=== PATIENT | male | born 1985 | race Two or more races ===

== ENCOUNTER 2020-02-14 16:13 | Inpatient (IN) | payer SELFPAY ==
[2020-02-14] MEDS ORDERED: Sodium Chloride 0.9% 10 ML Syringe FLUSH PRN (16:49)
[2020-02-14] MEDS ORDERED: Sodium Chloride 0.9% 10 ML SDV IV PRN (16:49)
[2020-02-14] MEDS ORDERED: Sodium Chloride 0.9% 2.5 ML Syringe FLUSH PRN (16:49)
--- NOTE | 2020-02-14 16:51 | EDM.PDOC ---
ED HPI GENERAL MEDICAL PROBLEM - General Chief Complaint: Respiratory Problem Stated Complaint: SHORTNESS OF BREATHE Time Seen by Provider: 02/14/20 16:13 Source of Information: Reports: Patient History Limitations: Reports: No Limitations - History of Present Illness INITIAL COMMENTS - FREE TEXT/NARRATIVE: Is a 34-year-old male with no past medical history presenting with cough, shortness of breath, chest discomfort, and lightheadedness. Patient reports a 5 -day history of a nonproductive cough with gradually worsening shortness of breath over the past 2 to 3 days. He had some substernal chest discomfort prior to arrival for several hours that subsided. He was walking to the emergency department and felt extremely short of breath, which is unusual for him. He reports that one of his coworkers that he had contact with was ill with a respiratory illness over the past few days. Denies any recent international travel, fever, hemoptysis, history of venous thromboembolism, history of coronary artery disease, leg swelling, recent travel or immobilization or surgery. Denies any pleuritic chest discomfort. He does report about 6 episodes of nonbloody diarrhea today but denies any nausea, vomiting, or bloody stools. No other complaints. Bilateral Lower Posterior Back Pain Score (Numeric/FACES): 8 - Related Data Allergies Allergy/AdvReac Type Severity Reaction Status Date / Time No Known Allergies Allergy Verified 02/14/20 20:59 Home Meds: Home Meds . [No Known Home Meds] 02/14/20 [History] Past Medical History - Past Health History Medical/Surgical History: Denies Medical/Surgical History HEENT History: Reports: None Cardiovascular History: Reports: None Respiratory History: Reports: None Gastrointestinal History: Reports: None Genitourinary History: Reports: None Musculoskeletal History: Reports: None Neurological History: Reports: None Psychiatric History: Reports: None Endocrine/Metabolic History: Reports: None Hematologic History: Reports: None Oncologic (Cancer) History: Reports: None Dermatologic History: Reports: None - Infectious Disease History Infectious Disease History: Reports: Chicken Pox - Past Surgical History Head Surgeries/Procedures: Reports: None Social & Family History - Family History Family Medical History: Noncontributory - Tobacco Use Smoking Status *Q: Never Smoker - Recreational Drug Use Recreational Drug Use: No ED ROS GENERAL - Review of Systems Review Of Systems: See Below Constitutional: Denies: Fever, Chills HEENT: Reports: No Symptoms Respiratory: Reports: Shortness of Breath, Cough. Denies: Wheezing, Pleuritic Chest Pain, Sputum, Hemoptysis Cardiovascular: Reports: Chest Pain (Prior to arrival, since resolved), Dyspnea on Exertion, Lightheadedness. Denies: Edema, Orthopnea, Palpitations, Syncope Endocrine: Denies: Fatigue GI/Abdominal: Reports: Diarrhea. Denies: Abdominal Pain, Black Stool, Bloody Stool, Constipation, Distension, Hematemesis, Hematochezia, Melena, Mucous in Stool, Nausea, Vomiting : Denies: Flank Pain Musculoskeletal: Denies: Neck Pain, Back Pain Skin: Denies: Rash Neurological: Denies: Headache Psychiatric: Reports: No Symptoms Hematologic/Lymphatic: Reports: No Symptoms Immunologic: Reports: No Symptoms ED EXAM, GENERAL - Physical Exam Exam: See Below Free Text/Narrative:: Vital signs reviewed. Nursing notes reviewed. Constitutional: Awake, alert, non-distressed. Head: Normocephalic, atraumatic. Eyes: EOMI, conjunctiva normal, no discharge, no scleral icterus. Ears, Nose, Throat: External ears and nose normal Cardiovascular: 2+ radial pulse, capillary refill less than 2 seconds. Pulmonary: normal work of breathing, no accessory muscle use. Handling secretions without difficulty Abdomen/GI: nondistended Musculoskeletal: No deformities. Integumentary: Appropriate color for ethnicity, warm, dry, no pallor or jaundice , no rash. Neurologic: Alert, answering questions appropriately, normal speech, no facial droop, moving all extremities well. Psychiatric: Appropriate mood and affect, normal thought process. EKG INTERPRETATION EKG Interpretation Comments: 12-Lead ECG Interpretation Acquired: 4:42 PM Rhythm: Sinus rhythm Rate: 87 bpm [place]: Normal Intervals: Normal Ectopy: None Ischemic Changes: None apparent RV Strain: No obvious RV strain pattern. ST Segments/T-Waves: T wave inversions in lead III, not seen in leads II or aVF Interpretation: Abnormal ECG Course - Vital Signs Text/Narrative:: 34-year-old male presenting with cough, shortness of breath, exertional dyspnea , chest discomfort, and diarrhea. Patient was hypoxic on arrival with an initial room air saturation of 88%, hemodynamically stable, afebrile, well-appearing, looks nontoxic. Differential diagnosis includes but is not limited to: pneumonia, novel coronavirus infection, viral pneumonia, congestive heart failure, pneumothorax, pulmonary embolism, pleural effusion, pericardial effusion, asthma, CHF, COPD, cor pulmonale, etc. Twelve-lead EKG shows T wave inversions in lead III, not seen in leads II or aVF so unlikely to be regional ischemia. CBC shows a mild macrocytic anemia. INR is normal. Venous blood gas is reassuring. Normal electrolytes and renal function. Troponin and BNP are within normal limits. COVID-19 nasopharyngeal PCR was negative. 1 view chest x-ray demonstrated diffuse increased densities seen in a perihilar distribution bilaterally, concerning for a viral pneumonia. Given resting hypoxia and symptoms with x-ray findings, I am concerned about viral pneumonia. There is concern for SARS-CoV-2/COVID-19 infection, and although his testing was negative, he has a high clinical pretest probability given his symptoms, x-ray findings, and vital signs. He will be maintained on airborne and contact precautions and will likely need to be retested in the morning. Influenza testing negative. A respiratory panel was sent as a send- out test. Given his hypoxia, he will need to be admitted to the hospital with supplemental oxygenation. I spoke with the accepting hospitalist Dr. Shook who agrees to admit to observation. Transferred to the observation unit in good condition. Last Recorded V/S: Last Vital Signs Temp 37.0 C 02/14/20 20:35 Pulse 94 02/14/20 20:35 Resp 20 02/14/20 20:35 BP 125/78 02/14/20 20:35 Pulse Ox 94 L 02/14/20 20:35 - Orders/Labs/Meds Orders: Active Orders 24 hr Category Date Time Status Cardiac Monitoring [RC] . DIRECTED Care 02/14/20 16:29 Active EKG 12 Lead [EKG Documentation Completion] [RC] STAT Care 02/14/20 16:29 Active Oxygen Therapy [RC] ASDIRECTED Care 02/14/20 16:58 Active Pulse Oximetry [RC] ASDIRECTED Care 02/14/20 16:29 Active CULTURE BLOOD [BC] Stat Lab 02/14/20 17:01 Received CULTURE BLOOD [BC] Stat Lab 02/14/20 17:28 Results RESPIRATORY PANEL Stat Lab 02/14/20 17:17 Received Sodium Chloride 0.9% [Normal Saline] Med 02/14/20 16:49 Active 10 ml IV ASDIRECTED PRN Sodium Chloride 0.9% [Saline Flush] Med 02/14/20 16:49 Active 10 ml FLUSH ASDIRECTED PRN Sodium Chloride 0.9% [Saline Flush] [facility] 02/14/20 16:49 Active 2.5 ml FLUSH ASDIRECTED PRN Blood Culture x2 Reflex Set [OM.PC] Stat [facility] 02/14/20 16:55 Ordered Isolation [COMM] Stat [facility] 02/14/20 16:29 Active Peripheral IV Insertion Adult [OM.PC] Stat [facility] 02/14/20 16:49 Ordered Medication Orders Albuterol/Ipratropium (Duoneb 3.0-0.5 Mg/3 Ml) 3 ml NEB Q4HRRT PRN PRN Reason: Shortness Of Breath/wheezing Heparin Sodium (Porcine) (Heparin Sodium) 5,000 units SUBCUT Q8H [facility] Last Admin: 02/14/20 22:07 Dose: 5,000 units Lactated Ringer's (Ringers, Lactated) 1,000 mls @ 100 mls/hr IV ASDIRECTED [facility] Last Admin: 02/14/20 22:08 Dose: 100 mls/hr Sodium Chloride (Saline Flush) 10 ml FLUSH ASDIRECTED PRN PRN Reason: Keep Vein Open Sodium Chloride (Saline Flush) 2.5 ml FLUSH ASDIRECTED PRN PRN Reason: Keep Vein Open Sodium Chloride (Normal Saline) 10 ml IV ASDIRECTED PRN PRN Reason: IV Use Labs: Laboratory Tests 02/14/20 02/14/20 02/14/20 Range/Units 17:01 17:01 17:01 WBC 6.97 (4.0-11.0) K/uL RBC 5.78 (4.50-5.90) M/uL Hgb 12.9 L (13.0-17.0) g/dL Hct 41.2 (38.0-50.0) % MCV 71.3 L (80.0-98.0) fL MCH 22.3 L (27.0-32.0) pg MCHC 31.3 (31.0-37.0) g/dL RDW Std Deviation 44.4 (28.0-62.0) fl RDW Coeff of Mildred 17 H (11.0-15.0) % Plt Count 379 (150-400) K/uL MPV 9.40 (7.40-12.00) fL Add Manual Diff YES Neutrophils % (Manual) 57 (48.0-80.0) % Band Neutrophils % 8 % Lymphocytes % (Manual) 25 (16.0-40.0) % Monocytes % (Manual) 10 (0.0-15.0) % Nucleated RBC % 0.0 /100WBC Absolute Seg Neuts 4.0 (1.4-5.7) Band Neutrophils # 0.6 Lymphocytes # (Manual) 1.7 (0.6-2.4) Monocytes # (Manual) 0.7 (0.0-0.8) Nucleated RBCs # 0 K/uL INR 1.02 VBG pH 7.39 (7.31-7.41) VBG pCO2 43 (35-45) mmHG VBG pO2 30 (30-40) mmHG VBG HCO3 26 (22-30) mEq/L VBG Total CO2 23 L (41-51) mmol/L VBG Base Excess 0.4 (-3.0-3.0) Lactate (0.20-2.00) mmol/L Sodium (136-148) mmol/L Potassium (3.5-5.1) mmol/L Chloride (98-107) mmol/L Carbon Dioxide (21.0-32.0) mmol/L BUN (7.0-18.0) mg/dL Creatinine (0.8-1.3) mg/dL Est Cr Clr Drug Dosing mL/min Estimated GFR (MDRD) ml/min Glucose (74-106) mg/dL Calcium (8.5-10.1) mg/dL Total Bilirubin (0.2-1.0) mg/dL AST (15-37) IU/L ALT (14-63) IU/L Alkaline Phosphatase (46-116) U/L Troponin I (0.000-0.056) ng/mL B-Natriuretic Peptide (<100) PG/ML Total Protein (6.4-8.2) g/dL Albumin (3.4-5.0) g/dL Globulin (2.6-4.0) g/dL Albumin/Globulin Ratio (0.9-1.6) SARS-CoV-2 RNA (RT-PCR) (NEGATIVE) 02/14/20 02/14/20 02/14/20 Range/Units 17:01 17:01 17:01 WBC (4.0-11.0) K/uL RBC (4.50-5.90) M/uL Hgb (13.0-17.0) g/dL Hct (38.0-50.0) % MCV (80.0-98.0) fL MCH (27.0-32.0) pg MCHC (31.0-37.0) g/dL RDW Std Deviation (28.0-62.0) fl RDW Coeff of Mildred (11.0-15.0) % Plt Count (150-400) K/uL MPV (7.40-12.00) fL Add Manual Diff Neutrophils % (Manual) (48.0-80.0) % Band Neutrophils % % Lymphocytes % (Manual) (16.0-40.0) % Monocytes % (Manual) (0.0-15.0) % Nucleated RBC % /100WBC Absolute Seg Neuts (1.4-5.7) Band Neutrophils # Lymphocytes # (Manual) (0.6-2.4) Monocytes # (Manual) (0.0-0.8) Nucleated RBCs # K/uL INR VBG pH (7.31-7.41) VBG pCO2 (35-45) mmHG VBG pO2 (30-40) mmHG VBG HCO3 (22-30) mEq/L VBG Total CO2 (41-51) mmol/L VBG Base Excess (-3.0-3.0) Lactate 1.5 (0.20-2.00) mmol/L Sodium 139 (136-148) mmol/L Potassium 3.5 (3.5-5.1) mmol/L Chloride 99 (98-107) mmol/L Carbon Dioxide 25.0 (21.0-32.0) mmol/L BUN 9 (7.0-18.0) mg/dL Creatinine 0.9 (0.8-1.3) mg/dL Est Cr Clr Drug Dosing 122.01 mL/min Estimated GFR (MDRD) > 60.0 ml/min Glucose 109 H (74-106) mg/dL Calcium 8.7 (8.5-10.1) mg/dL Total Bilirubin 0.4 (0.2-1.0) mg/dL AST 41 H (15-37) IU/L ALT 40 (14-63) IU/L Alkaline Phosphatase 66 (46-116) U/L Troponin I < 0.050 (0.000-0.056) ng/mL B-Natriuretic Peptide 4 (<100) PG/ML Total Protein 8.8 H (6.4-8.2) g/dL Albumin 3.3 L (3.4-5.0) g/dL Globulin 5.5 H (2.6-4.0) g/dL Albumin/Globulin Ratio 0.6 L (0.9-1.6) SARS-CoV-2 RNA (RT-PCR) (NEGATIVE) 02/14/20 Range/Units 17:01 WBC (4.0-11.0) K/uL RBC (4.50-5.90) M/uL Hgb (13.0-17.0) g/dL Hct (38.0-50.0) % MCV (80.0-98.0) fL MCH (27.0-32.0) pg MCHC (31.0-37.0) g/dL RDW Std Deviation (28.0-62.0) fl RDW Coeff of Mildred (11.0-15.0) % Plt Count (150-400) K/uL MPV (7.40-12.00) fL Add Manual Diff Neutrophils % (Manual) (48.0-80.0) % Band Neutrophils % % Lymphocytes % (Manual) (16.0-40.0) % Monocytes % (Manual) (0.0-15.0) % Nucleated RBC % /100WBC Absolute Seg Neuts (1.4-5.7) Band Neutrophils # Lymphocytes # (Manual) (0.6-2.4) Monocytes # (Manual) (0.0-0.8) Nucleated RBCs # K/uL INR VBG pH (7.31-7.41) VBG pCO2 (35-45) mmHG VBG pO2 (30-40) mmHG VBG HCO3 (22-30) mEq/L VBG Total CO2 (41-51) mmol/L VBG Base Excess (-3.0-3.0) Lactate (0.20-2.00) mmol/L Sodium (136-148) mmol/L Potassium (3.5-5.1) mmol/L Chloride (98-107) mmol/L Carbon Dioxide (21.0-32.0) mmol/L BUN (7.0-18.0) mg/dL Creatinine (0.8-1.3) mg/dL Est Cr Clr Drug Dosing mL/min Estimated GFR (MDRD) ml/min Glucose (74-106) mg/dL Calcium (8.5-10.1) mg/dL Total Bilirubin (0.2-1.0) mg/dL AST (15-37) IU/L ALT (14-63) IU/L Alkaline Phosphatase (46-116) U/L Troponin I (0.000-0.056) ng/mL B-Natriuretic Peptide (<100) PG/ML Total Protein (6.4-8.2) g/dL Albumin (3.4-5.0) g/dL Globulin (2.6-4.0) g/dL Albumin/Globulin Ratio (0.9-1.6) SARS-CoV-2 RNA (RT-PCR) NEGATIVE (NEGATIVE) Meds: Medications Generic Name Dose Route Start Last Admin Trade Name Freq PRN Reason Stop Dose Admin Albuterol/Ipratropium 3 ml 02/14/20 18:26 Duoneb 3.0-0.5 Mg/3 Ml NEB Q4HRRT PRN Shortness Of Breath/wheezing Heparin Sodium (Porcine) 5,000 units 02/14/20 21:00 02/14/20 22:07 Heparin Sodium SUBCUT 5,000 units Q8H [facility] Administration Lactated Ringer's 1,000 mls @ 100 mls/hr 02/14/20 18:45 02/14/20 22:08 Ringers, Lactated IV 100 mls/hr ASDIRECTED RUI Administration Sodium Chloride 10 ml 02/14/20 16:49 Saline Flush FLUSH ASDIRECTED PRN Keep Vein Open Sodium Chloride 2.5 ml 02/14/20 16:49 Saline Flush FLUSH ASDIRECTED PRN Keep Vein Open Sodium Chloride 10 ml 02/14/20 16:49 Normal Saline IV ASDIRECTED PRN IV Use Discontinued Medications Generic Name Dose Route Start Last Admin Trade Name Freq PRN Reason Stop Dose Admin Heparin Sodium (Porcine) 5,000 units 02/14/20 18:30 Heparin Sodium SUBCUT Q8H [facility] Departure - Departure Time of Disposition: 18:15 Disposition: Refer to Observation Clinical Impression: Viral pneumonia - Discharge Information Sepsis Event Note - Evaluation Sepsis Screening Result: No Definite Risk - Focused Exam Vital Signs: Vital Signs Temp Pulse Resp BP Pulse Ox Pulse Ox 02/14/20 17:45 81 20 126/76 94 L 02/14/20 17:10 95 02/14/20 17:09 88 22 H 125/76 90 L 02/14/20 16:27 35.9 C L 93 20 150/92 H 90 L Date Exam was Performed: 02/14/20 Time Exam was Performed: 22:10 - My Orders Last 24 Hours: My Active Orders 02/14/20 16:29 Cardiac Monitoring [RC] . DIRECTED EKG 12 Lead [EKG Documentation Completion] [RC] STAT Pulse Oximetry [RC] ASDIRECTED Isolation [COMM] Stat 02/14/20 16:49 Sodium Chloride 0.9% [Normal Saline] 10 ml IV ASDIRECTED PRN Sodium Chloride 0.9% [Saline Flush] 10 ml FLUSH ASDIRECTED PRN Sodium Chloride 0.9% [Saline Flush] 2.5 ml FLUSH ASDIRECTED PRN Peripheral IV Insertion Adult [OM.PC] Stat 02/14/20 16:55 Blood Culture x2 Reflex Set [OM.PC] Stat 02/14/20 16:58 Oxygen Therapy [RC] ASDIRECTED 02/14/20 17:01 CULTURE BLOOD [BC] Stat 02/14/20 17:17 RESPIRATORY PANEL Stat 02/14/20 17:28 CULTURE BLOOD [BC] Stat - Assessment/Plan Last 24 Hours: My Active Orders 02/14/20 16:29 Cardiac Monitoring [RC] . DIRECTED EKG 12 Lead [EKG Documentation Completion] [RC] STAT Pulse Oximetry [RC] ASDIRECTED Isolation [COMM] Stat 02/14/20 16:49 Sodium Chloride 0.9% [Normal Saline] 10 ml IV ASDIRECTED PRN Sodium Chloride 0.9% [Saline Flush] 10 ml FLUSH ASDIRECTED PRN Sodium Chloride 0.9% [Saline Flush] 2.5 ml FLUSH ASDIRECTED PRN Peripheral IV Insertion Adult [OM.PC] Stat 02/14/20 16:55 Blood Culture x2 Reflex Set [OM.PC] Stat 02/14/20 16:58 Oxygen Therapy [RC] ASDIRECTED 02/14/20 17:01 CULTURE BLOOD [BC] Stat 02/14/20 17:17 RESPIRATORY PANEL Stat 02/14/20 17:28 CULTURE BLOOD [BC] Stat
--- NOTE | 2020-02-14 17:16 | CR ---
Chest: Portable view of the chest was obtained. Comparison: No previous chest imaging is available. Diffuse increased density is seen in a perihilar distribution within both sides of the chest. Heart does not appear enlarged. Upper mediastinum is normal. Bony structures are unremarkable. Impression: 1. Diffuse increased density within a perihilar distribution. Findings could represent pulmonary edema if patient has had acute cardiac event. Differential also includes infection which could be bacterial or viral. Diagnostic code #3 This report was dictated in MDT
[2020-02-14 17:44] LABS: BLOOD UREA NITROGEN,BUN 9 mg/dL (7.0-18.0); CHLORIDE,CL 99 mmol/L (98-107); GLUCOSE RANDOM 109 mg/dL (74-106); POTASSIUM,K 3.5 mmol/L (3.5-5.1); SODIUM,NA 139 mmol/L (136-148)
[2020-02-14] MEDS ORDERED: Heparin Sodium 5,000 Units/ML Vial SUBCUT SCH (18:30)
--- NOTE | 2020-02-14 21:13 | PCM.HP.2 ---
H&P History of Present Illness - General Date of Service: 02/14/20 Admit Problem/Dx: Admission Diagnosis/Problem Admission Diagnosis/Problem Viral pneumonia Source of Information: Patient - History of Present Illness Initial Comments - Free Text/Narative: 34-year-old male with no significant PMH presents to the ER with cough, shortness of breath, exertional dyspnea, chest discomfort, and some diarrhea. Patient was hypoxic on arrival with an initial room air saturation of 88%, hemodynamically stable, looks nontoxic. EKG showed no acute ischemic changes. CBC shows a mild macrocytic anemia. Troponin and BNP are within normal limits. COVID-19 nasopharyngeal PCR was negative. Chest x-ray demonstrated diffuse increased density seen in a perihilar distribution bilaterally, concerning for a viral pneumonia vs Pulmonary edema. Given resting hypoxia and symptoms with x-ray findings,There was a concern for COVID-19 infection, testing was negative,ER physician was concerned about false negative results. Influenza testing was negative. Given patient continued to be hypoxic, he was admitted to the hospital. - Related Data Allergies/Adverse Reactions: Allergies Allergy/AdvReac Type Severity Reaction Status Date / Time No Known Allergies Allergy Verified 02/14/20 20:59 Home Medications: Home Meds . [No Known Home Meds] 02/14/20 [History] Past Medical History - Past Health History Medical/Surgical History: Denies Medical/Surgical History HEENT History: Reports: None Cardiovascular History: Reports: None Respiratory History: Reports: None Gastrointestinal History: Reports: None Genitourinary History: Reports: None Musculoskeletal History: Reports: None Neurological History: Reports: None Psychiatric History: Reports: None Endocrine/Metabolic History: Reports: None Hematologic History: Reports: None Oncologic (Cancer) History: Reports: None Dermatologic History: Reports: None - Infectious Disease History Infectious Disease History: Reports: Chicken Pox - Past Surgical History Head Surgeries/Procedures: Reports: None Social & Family History - Family History Family Medical History: Noncontributory Cardiac: Reports: None : Reports: Dialysis Endocrine/Metabolic: Reports: Diabetes, type II Oncologic: Reports: Renal - Tobacco Use Smoking Status *Q: Former Smoker Years of Tobacco use: 21 Packs/Tins Daily: 0.5 Used Tobacco, but Quit: Yes Month/Year Tobacco Last Used: 01/2020 Second Hand Smoke Exposure: No - Caffeine Use Caffeine Use: Reports: Coffee, Energy Drinks, Soda - Recreational Drug Use Recreational Drug Use: No H&P Review of Systems - Review of Systems: General: Reports: Chills, Malaise. Denies: Fever Pulmonary: Reports: Shortness of Breath, Cough, Sputum. Denies: Wheezing, Pleuritic Chest Pain Cardiovascular: Reports: Dyspnea on Exertion. Denies: Chest Pain, Palpitations , Orthopnea, Lightheadedness, Syncope Gastrointestinal: Reports: Diarrhea. Denies: Abdominal Pain, Anorexia, Bloody Stool, Constipation Genitourinary: Denies: Dysuria, Frequency, Burning, Pain Musculoskeletal: Denies: Neck Pain, Shoulder Pain, Arm Pain Neurological: Denies: Confusion, Dizziness, Headache Exam - Vital Signs Vital Signs: Last Vital Signs Temp 37.0 C 02/14/20 20:35 Pulse 94 02/14/20 20:35 Resp 20 02/14/20 20:35 BP 125/78 02/14/20 20:35 Pulse Ox 94 L 02/14/20 20:35 Weight: 134.037 kg - Exam Quality Assessment: Supplemental Oxygen General: Alert, Oriented HEENT: Conjunctiva Clear Neck: Supple, Trachea Midline Lungs: Decreased Breath Sounds, Crackles, Rales Cardiovascular: Regular Rate, Regular Rhythm, Normal S1, Normal S2 GI/Abdominal Exam: Normal Bowel Sounds, Soft, Non-Tender - Patient Data Lab Results Last 24 hrs: Laboratory Results - last 24 hr 02/14/20 02/14/20 02/14/20 Range/Units 17:01 17:01 17:01 WBC 6.97 (4.0-11.0) K/uL RBC 5.78 (4.50-5.90) M/uL Hgb 12.9 L (13.0-17.0) g/dL Hct 41.2 (38.0-50.0) % MCV 71.3 L (80.0-98.0) fL MCH 22.3 L (27.0-32.0) pg MCHC 31.3 (31.0-37.0) g/dL RDW Std Deviation 44.4 (28.0-62.0) fl RDW Coeff of Mildred 17 H (11.0-15.0) % Plt Count 379 (150-400) K/uL MPV 9.40 (7.40-12.00) fL Add Manual Diff YES Neutrophils % (Manual) 57 (48.0-80.0) % Band Neutrophils % 8 % Lymphocytes % (Manual) 25 (16.0-40.0) % Monocytes % (Manual) 10 (0.0-15.0) % Nucleated RBC % 0.0 /100WBC Absolute Seg Neuts 4.0 (1.4-5.7) Band Neutrophils # 0.6 Lymphocytes # (Manual) 1.7 (0.6-2.4) Monocytes # (Manual) 0.7 (0.0-0.8) Nucleated RBCs # 0 K/uL INR 1.02 VBG pH 7.39 (7.31-7.41) VBG pCO2 43 (35-45) mmHG VBG pO2 30 (30-40) mmHG VBG HCO3 26 (22-30) mEq/L VBG Total CO2 23 L (41-51) mmol/L VBG Base Excess 0.4 (-3.0-3.0) Lactate (0.20-2.00) mmol/L Sodium (136-148) mmol/L Potassium (3.5-5.1) mmol/L Chloride (98-107) mmol/L Carbon Dioxide (21.0-32.0) mmol/L BUN (7.0-18.0) mg/dL Creatinine (0.8-1.3) mg/dL Est Cr Clr Drug Dosing mL/min Estimated GFR (MDRD) ml/min Glucose (74-106) mg/dL Calcium (8.5-10.1) mg/dL Total Bilirubin (0.2-1.0) mg/dL AST (15-37) IU/L ALT (14-63) IU/L Alkaline Phosphatase (46-116) U/L Troponin I (0.000-0.056) ng/mL B-Natriuretic Peptide (<100) PG/ML Total Protein (6.4-8.2) g/dL Albumin (3.4-5.0) g/dL Globulin (2.6-4.0) g/dL Albumin/Globulin Ratio (0.9-1.6) SARS-CoV-2 RNA (RT-PCR) (NEGATIVE) 02/14/20 02/14/20 02/14/20 Range/Units 17:01 17:01 17:01 WBC (4.0-11.0) K/uL RBC (4.50-5.90) M/uL Hgb (13.0-17.0) g/dL Hct (38.0-50.0) % MCV (80.0-98.0) fL MCH (27.0-32.0) pg MCHC (31.0-37.0) g/dL RDW Std Deviation (28.0-62.0) fl RDW Coeff of Mildred (11.0-15.0) % Plt Count (150-400) K/uL MPV (7.40-12.00) fL Add Manual Diff Neutrophils % (Manual) (48.0-80.0) % Band Neutrophils % % Lymphocytes % (Manual) (16.0-40.0) % Monocytes % (Manual) (0.0-15.0) % Nucleated RBC % /100WBC Absolute Seg Neuts (1.4-5.7) Band Neutrophils # Lymphocytes # (Manual) (0.6-2.4) Monocytes # (Manual) (0.0-0.8) Nucleated RBCs # K/uL INR VBG pH (7.31-7.41) VBG pCO2 (35-45) mmHG VBG pO2 (30-40) mmHG VBG HCO3 (22-30) mEq/L VBG Total CO2 (41-51) mmol/L VBG Base Excess (-3.0-3.0) Lactate 1.5 (0.20-2.00) mmol/L Sodium 139 (136-148) mmol/L Potassium 3.5 (3.5-5.1) mmol/L Chloride 99 (98-107) mmol/L Carbon Dioxide 25.0 (21.0-32.0) mmol/L BUN 9 (7.0-18.0) mg/dL Creatinine 0.9 (0.8-1.3) mg/dL Est Cr Clr Drug Dosing 122.01 mL/min Estimated GFR (MDRD) > 60.0 ml/min Glucose 109 H (74-106) mg/dL Calcium 8.7 (8.5-10.1) mg/dL Total Bilirubin 0.4 (0.2-1.0) mg/dL AST 41 H (15-37) IU/L ALT 40 (14-63) IU/L Alkaline Phosphatase 66 (46-116) U/L Troponin I < 0.050 (0.000-0.056) ng/mL B-Natriuretic Peptide 4 (<100) PG/ML Total Protein 8.8 H (6.4-8.2) g/dL Albumin 3.3 L (3.4-5.0) g/dL Globulin 5.5 H (2.6-4.0) g/dL Albumin/Globulin Ratio 0.6 L (0.9-1.6) SARS-CoV-2 RNA (RT-PCR) (NEGATIVE) 02/14/20 Range/Units 17:01 WBC (4.0-11.0) K/uL RBC (4.50-5.90) M/uL Hgb (13.0-17.0) g/dL Hct (38.0-50.0) % MCV (80.0-98.0) fL MCH (27.0-32.0) pg MCHC (31.0-37.0) g/dL RDW Std Deviation (28.0-62.0) fl RDW Coeff of Mildred (11.0-15.0) % Plt Count (150-400) K/uL MPV (7.40-12.00) fL Add Manual Diff Neutrophils % (Manual) (48.0-80.0) % Band Neutrophils % % Lymphocytes % (Manual) (16.0-40.0) % Monocytes % (Manual) (0.0-15.0) % Nucleated RBC % /100WBC Absolute Seg Neuts (1.4-5.7) Band Neutrophils # Lymphocytes # (Manual) (0.6-2.4) Monocytes # (Manual) (0.0-0.8) Nucleated RBCs # K/uL INR VBG pH (7.31-7.41) VBG pCO2 (35-45) mmHG VBG pO2 (30-40) mmHG VBG HCO3 (22-30) mEq/L VBG Total CO2 (41-51) mmol/L VBG Base Excess (-3.0-3.0) Lactate (0.20-2.00) mmol/L Sodium (136-148) mmol/L Potassium (3.5-5.1) mmol/L Chloride (98-107) mmol/L Carbon Dioxide (21.0-32.0) mmol/L BUN (7.0-18.0) mg/dL Creatinine (0.8-1.3) mg/dL Est Cr Clr Drug Dosing mL/min Estimated GFR (MDRD) ml/min Glucose (74-106) mg/dL Calcium (8.5-10.1) mg/dL Total Bilirubin (0.2-1.0) mg/dL AST (15-37) IU/L ALT (14-63) IU/L Alkaline Phosphatase (46-116) U/L Troponin I (0.000-0.056) ng/mL B-Natriuretic Peptide (<100) PG/ML Total Protein (6.4-8.2) g/dL Albumin (3.4-5.0) g/dL Globulin (2.6-4.0) g/dL Albumin/Globulin Ratio (0.9-1.6) SARS-CoV-2 RNA (RT-PCR) NEGATIVE (NEGATIVE) Result Diagrams: 02/14/20 17:01 02/14/20 17:01 Francesco Results Last 24 hrs: Microbiology 02/14/20 17:17 Influenza Type A Antigen Screen - Final Nasopharyngeal Swab NEGATIVE INFLUENZA A VIRUS AG REFERENCE RANGE: NEGATIVE Influenza Type B Antigen Screen - Final NEGATIVE INFLUENZA B VIRUS AG REFERENCE RANGE: NEGATIVE 02/14/20 17:28 Anaerobic Blood Culture - Final Blood - Venous - Lab Draw Sepsis Event Note - Evaluation Sepsis Screening Result: No Definite Risk - Focused Exam Vital Signs: Vital Signs Temp Pulse Resp BP Pulse Ox Pulse Ox 02/14/20 20:35 37.0 C 94 20 125/78 94 L 02/14/20 19:00 91 124/81 91 L 02/14/20 18:22 82 22 H 148/86 H 95 02/14/20 18:05 137/91 H 02/14/20 17:45 81 20 126/76 94 L 02/14/20 17:10 95 02/14/20 17:09 88 22 H 125/76 90 L 02/14/20 16:27 35.9 C L 93 20 150/92 H 90 L Date Exam was Performed: 02/14/20 Time Exam was Performed: 21:47 - Problem List (1) Viral pneumonia SNOMED Code(s): 08404940 ICD Code: J12.9 - VIRAL PNEUMONIA, UNSPECIFIED Status: Acute Current Visit: Yes Orders Last 24hrs: Active Orders 24 hr Category Date Time Status Patient Status [ADT] Stat ADT 02/14/20 18:02 Active Antiembolic Devices [RC] PER UNIT ROUTINE Care 02/14/20 18:32 Active Cardiac Monitoring [RC] . DIRECTED Care 02/14/20 16:29 Active EKG 12 Lead [EKG Documentation Completion] [RC] STAT Care 02/14/20 16:29 Active Oxygen Therapy [RC] ASDIRECTED Care 02/14/20 16:58 Active Oxygen Therapy [RC] PRN Care 02/14/20 18:27 Active Pulse Oximetry [RC] ASDIRECTED Care 02/14/20 16:29 Active RT Aerosol Therapy [RC] ASDIRECTED Care 02/14/20 18:32 Active Telemetry Monitoring [Cardiac Monitoring] [RC] Q8H Care 02/14/20 20:15 Active VTE/DVT Education [RC] PER UNIT ROUTINE Care 02/14/20 18:27 Active Vital Signs [RC] Q4H Care 02/14/20 18:27 Active Regular Diet [DIET] Diet 02/14/20 Dinner Active CULTURE BLOOD [BC] Stat Lab 02/14/20 17:01 Received CULTURE BLOOD [BC] Stat Lab 02/14/20 17:28 Results CULTURE SPUTUM + SMEAR [RM] Stat Lab 02/14/20 18:26 Ordered RESPIRATORY PANEL Stat Lab 02/14/20 17:17 Received Albuterol/Ipratropium [DuoNeb 3.0-0.5 MG/3 ML] Med 02/14/20 18:26 Active 3 ml NEB Q4HRRT PRN Heparin Sodium Med 02/14/20 21:00 Active 5,000 units SUBCUT Q8H Lactated Ringers [Ringers, Lactated] 1,000 ml Med 02/14/20 18:45 Active IV ASDIRECTED Sodium Chloride 0.9% [Normal Saline] Med 02/14/20 16:49 Active 10 ml IV ASDIRECTED PRN Sodium Chloride 0.9% [Saline Flush] Med 02/14/20 16:49 Active 10 ml FLUSH ASDIRECTED PRN Sodium Chloride 0.9% [Saline Flush] Med 02/14/20 16:49 Active 2.5 ml FLUSH ASDIRECTED PRN Blood Culture x2 Reflex Set [OM.PC] Stat Oth 02/14/20 16:55 Ordered Isolation [COMM] Routine Ot 02/14/20 18:05 Active Isolation [COMM] Stat Ot 02/14/20 16:29 Active Peripheral IV Insertion Adult [OM.PC] Stat Ot 02/14/20 16:49 Ordered Sequential Compression Device [OM.PC] Per Unit Routine Ot 02/14/20 18:28 Ordered Resuscitation Status Routine Resus Stat 02/14/20 18:26 Ordered Medication Orders Albuterol/Ipratropium (Duoneb 3.0-0.5 Mg/3 Ml) 3 ml NEB Q4HRRT PRN PRN Reason: Shortness Of Breath/wheezing Heparin Sodium (Porcine) (Heparin Sodium) 5,000 units SUBCUT Q8H RUI Lactated Ringer's (Ringers, Lactated) 1,000 mls @ 100 mls/hr IV ASDIRECTED RUI Sodium Chloride (Saline Flush) 10 ml FLUSH ASDIRECTED PRN PRN Reason: Keep Vein Open Sodium Chloride (Saline Flush) 2.5 ml FLUSH ASDIRECTED PRN PRN Reason: Keep Vein Open Sodium Chloride (Normal Saline) 10 ml IV ASDIRECTED PRN PRN Reason: IV Use Assessment/Plan Comment:: A/P: 34 y/o M admitted for viral pneumonia vs pulmonary edema Physical exam not suggestive of volume overload Influenza swab negative, COVID negtaive F/U blood cultures Start oxygenation with NC to maintain sats>92% IVF for hydration , watch for volume overload Monitor and replete electrolytes Heparin for DVT ppx
[2020-02-14] MEDS: Heparin Sodium 5,000 Units/ML Vial SUBCUT SCH (22:07)
[2020-02-14] MEDS: Lactated Ringers 1,000 ML IV SCH (22:08)
[2020-02-14] MEDS ORDERED: cefTRIAXone 1 GM in Sodium Chloride 0.9% 50 ML IV SCH (23:00)
[2020-02-14] MEDS ORDERED: Furosemide 20 MG/2 ML VIAL IVPUSH ONE (23:42)
[2020-02-14] MEDS: Albuterol/Ipratropium 3.0-0.5 MG/3 ML Neb Soln NEB PRN (23:48)
[2020-02-14] MEDS: Azithromycin 500 MG in Sodium Chloride 0.9% 250 ML IV SCH (23:59)
[2020-02-15] MEDS ORDERED: Azithromycin 500 MG in Sodium Chloride 0.9% 250 ML IV SCH ×2
[2020-02-15] MEDS: Morphine 2 MG/ML Syringe IVPUSH PRN ×4 (00:21→23:09)
[2020-02-15] MEDS: Heparin Sodium 5,000 Units/ML Vial SUBCUT SCH (05:13)
[2020-02-15] MEDS: Albuterol/Ipratropium 3.0-0.5 MG/3 ML Neb Soln NEB PRN (07:40)
--- NOTE | 2020-02-15 09:21 | PCM.PN ---
- General Info Date of Service: 02/15/20 Admission Dx/Problem (Free Text): Admission Diagnosis/Problem Admission Diagnosis/Problem Viral pneumonia Subjective Update: Feeling a little improved today. Continues to have dyspnea with hypoxia. Reports cough especially with exertion and dyspnea. denies history of asthma. Reports he quit smoking a few months ago. Reports he recently traveled in car from [place] 2 weeks ago. Denies leg pain or swelling. - Review of Systems General: Reports: Fatigue, Malaise HEENT: Reports: Sore Throat. Denies: Headaches, Sinus Congestion, Visual Changes Pulmonary: Reports: Shortness of Breath, Cough. Denies: Sputum Cardiovascular: Reports: No Symptoms. Denies: Chest Pain Gastrointestinal: Reports: No Symptoms. Denies: Abdominal Pain, Nausea, Vomiting Genitourinary: Reports: Hematuria. Denies: Dysuria, Frequency Musculoskeletal: Reports: No Symptoms Skin: Reports: No Symptoms Neurological: Reports: No Symptoms Psychiatric: Reports: No Symptoms - Patient Data Vitals - Most Recent: Last Vital Signs Temp 97.8 F 02/15/20 07:44 Pulse 76 02/15/20 07:44 Resp 20 02/15/20 07:44 BP 118/72 02/15/20 07:44 Pulse Ox 91 L 02/15/20 07:44 Weight - Most Recent: 134.037 kg I&O - Last 24 Hours: Intake & Output 02/14/20 02/15/20 02/15/20 22:59 06:59 14:59 Intake Total 1123 Output Total 950 Balance 173 Lab Results Last 24 Hours: Laboratory Results - last 24 hr 02/14/20 02/14/20 02/14/20 Range/Units 17:01 17:01 17:01 WBC 6.97 (4.0-11.0) K/uL RBC 5.78 (4.50-5.90) M/uL Hgb 12.9 L (13.0-17.0) g/dL Hct 41.2 (38.0-50.0) % MCV 71.3 L (80.0-98.0) fL MCH 22.3 L (27.0-32.0) pg MCHC 31.3 (31.0-37.0) g/dL RDW Std Deviation 44.4 (28.0-62.0) fl RDW Coeff of Mildred 17 H (11.0-15.0) % Plt Count 379 (150-400) K/uL MPV 9.40 (7.40-12.00) fL Add Manual Diff YES Neutrophils % (Manual) 57 (48.0-80.0) % Band Neutrophils % 8 % Lymphocytes % (Manual) 25 (16.0-40.0) % Monocytes % (Manual) 10 (0.0-15.0) % Nucleated RBC % 0.0 /100WBC Absolute Seg Neuts 4.0 (1.4-5.7) Band Neutrophils # 0.6 Lymphocytes # (Manual) 1.7 (0.6-2.4) Monocytes # (Manual) 0.7 (0.0-0.8) Nucleated RBCs # 0 K/uL INR 1.02 VBG pH 7.39 (7.31-7.41) VBG pCO2 43 (35-45) mmHG VBG pO2 30 (30-40) mmHG VBG HCO3 26 (22-30) mEq/L VBG Total CO2 23 L (41-51) mmol/L VBG Base Excess 0.4 (-3.0-3.0) Lactate (0.20-2.00) mmol/L Sodium (136-148) mmol/L Potassium (3.5-5.1) mmol/L Chloride (98-107) mmol/L Carbon Dioxide (21.0-32.0) mmol/L BUN (7.0-18.0) mg/dL Creatinine (0.8-1.3) mg/dL Est Cr Clr Drug Dosing mL/min Estimated GFR (MDRD) ml/min Glucose (74-106) mg/dL Calcium (8.5-10.1) mg/dL Total Bilirubin (0.2-1.0) mg/dL AST (15-37) IU/L ALT (14-63) IU/L Alkaline Phosphatase (46-116) U/L Troponin I (0.000-0.056) ng/mL B-Natriuretic Peptide (<100) PG/ML Total Protein (6.4-8.2) g/dL Albumin (3.4-5.0) g/dL Globulin (2.6-4.0) g/dL Albumin/Globulin Ratio (0.9-1.6) Urine Color Urine Appearance Urine pH (5.0-8.0) Ur Specific [place] (1.001-1.035) Urine Protein (NEGATIVE) mg/dL Urine Glucose (UA) (NEGATIVE) mg/dL Urine Ketones (NEGATIVE) mg/dL Urine Occult Blood (NEGATIVE) Urine Nitrite (NEGATIVE) Urine Bilirubin (NEGATIVE) Urine Ictotest Urine Urobilinogen (<2.0) EU/dL Ur Leukocyte Esterase (NEGATIVE) Urine RBC (0-2/HPF) Urine WBC (0-5/HPF) Ur Epithelial Cells (NONE-FEW) Urine Bacteria (NEGATIVE) Urine Mucus (NONE-MOD) SARS-CoV-2 RNA (RT-PCR) (NEGATIVE) 02/14/20 02/14/20 02/14/20 Range/Units 17:01 17:01 17:01 WBC (4.0-11.0) K/uL RBC (4.50-5.90) M/uL Hgb (13.0-17.0) g/dL Hct (38.0-50.0) % MCV (80.0-98.0) fL MCH (27.0-32.0) pg MCHC (31.0-37.0) g/dL RDW Std Deviation (28.0-62.0) fl RDW Coeff of Mildred (11.0-15.0) % Plt Count (150-400) K/uL MPV (7.40-12.00) fL Add Manual Diff Neutrophils % (Manual) (48.0-80.0) % Band Neutrophils % % Lymphocytes % (Manual) (16.0-40.0) % Monocytes % (Manual) (0.0-15.0) % Nucleated RBC % /100WBC Absolute Seg Neuts (1.4-5.7) Band Neutrophils # Lymphocytes # (Manual) (0.6-2.4) Monocytes # (Manual) (0.0-0.8) Nucleated RBCs # K/uL INR VBG pH (7.31-7.41) VBG pCO2 (35-45) mmHG VBG pO2 (30-40) mmHG VBG HCO3 (22-30) mEq/L VBG Total CO2 (41-51) mmol/L VBG Base Excess (-3.0-3.0) Lactate 1.5 (0.20-2.00) mmol/L Sodium 139 (136-148) mmol/L Potassium 3.5 (3.5-5.1) mmol/L Chloride 99 (98-107) mmol/L Carbon Dioxide 25.0 (21.0-32.0) mmol/L BUN 9 (7.0-18.0) mg/dL Creatinine 0.9 (0.8-1.3) mg/dL Est Cr Clr Drug Dosing 122.01 mL/min Estimated GFR (MDRD) > 60.0 ml/min Glucose 109 H (74-106) mg/dL Calcium 8.7 (8.5-10.1) mg/dL Total Bilirubin 0.4 (0.2-1.0) mg/dL AST 41 H (15-37) IU/L ALT 40 (14-63) IU/L Alkaline Phosphatase 66 (46-116) U/L Troponin I < 0.050 (0.000-0.056) ng/mL B-Natriuretic Peptide 4 (<100) PG/ML Total Protein 8.8 H (6.4-8.2) g/dL Albumin 3.3 L (3.4-5.0) g/dL Globulin 5.5 H (2.6-4.0) g/dL Albumin/Globulin Ratio 0.6 L (0.9-1.6) Urine Color Urine Appearance Urine pH (5.0-8.0) Ur Specific [place] (1.001-1.035) Urine Protein (NEGATIVE) mg/dL Urine Glucose (UA) (NEGATIVE) mg/dL Urine Ketones (NEGATIVE) mg/dL Urine Occult Blood (NEGATIVE) Urine Nitrite (NEGATIVE) Urine Bilirubin (NEGATIVE) Urine Ictotest Urine Urobilinogen (<2.0) EU/dL Ur Leukocyte Esterase (NEGATIVE) Urine RBC (0-2/HPF) Urine WBC (0-5/HPF) Ur Epithelial Cells (NONE-FEW) Urine Bacteria (NEGATIVE) Urine Mucus (NONE-MOD) SARS-CoV-2 RNA (RT-PCR) (NEGATIVE) 02/14/20 02/15/20 Range/Units 17:01 00:09 WBC (4.0-11.0) K/uL RBC (4.50-5.90) M/uL Hgb (13.0-17.0) g/dL Hct (38.0-50.0) % MCV (80.0-98.0) fL MCH (27.0-32.0) pg MCHC (31.0-37.0) g/dL RDW Std Deviation (28.0-62.0) fl RDW Coeff of Mildred (11.0-15.0) % Plt Count (150-400) K/uL MPV (7.40-12.00) fL Add Manual Diff Neutrophils % (Manual) (48.0-80.0) % Band Neutrophils % % Lymphocytes % (Manual) (16.0-40.0) % Monocytes % (Manual) (0.0-15.0) % Nucleated RBC % /100WBC Absolute Seg Neuts (1.4-5.7) Band Neutrophils # Lymphocytes # (Manual) (0.6-2.4) Monocytes # (Manual) (0.0-0.8) Nucleated RBCs # K/uL INR VBG pH (7.31-7.41) VBG pCO2 (35-45) mmHG VBG pO2 (30-40) mmHG VBG HCO3 (22-30) mEq/L VBG Total CO2 (41-51) mmol/L VBG Base Excess (-3.0-3.0) Lactate (0.20-2.00) mmol/L Sodium (136-148) mmol/L Potassium (3.5-5.1) mmol/L Chloride (98-107) mmol/L Carbon Dioxide (21.0-32.0) mmol/L BUN (7.0-18.0) mg/dL Creatinine (0.8-1.3) mg/dL Est Cr Clr Drug Dosing mL/min Estimated GFR (MDRD) ml/min Glucose (74-106) mg/dL Calcium (8.5-10.1) mg/dL Total Bilirubin (0.2-1.0) mg/dL AST (15-37) IU/L ALT (14-63) IU/L Alkaline Phosphatase (46-116) U/L Troponin I (0.000-0.056) ng/mL B-Natriuretic Peptide (<100) PG/ML Total Protein (6.4-8.2) g/dL Albumin (3.4-5.0) g/dL Globulin (2.6-4.0) g/dL Albumin/Globulin Ratio (0.9-1.6) Urine Color DARK YELLOW Urine Appearance CLEAR Urine pH 6.5 (5.0-8.0) Ur Specific [place] 1.020 (1.001-1.035) Urine Protein 100 H (NEGATIVE) mg/dL Urine Glucose (UA) NEGATIVE (NEGATIVE) mg/dL Urine Ketones TRACE H (NEGATIVE) mg/dL Urine Occult Blood TRACE-INTACT H (NEGATIVE) Urine Nitrite NEGATIVE (NEGATIVE) Urine Bilirubin SMALL H (NEGATIVE) Urine Ictotest NEGATIVE Urine Urobilinogen 2.0 H (<2.0) EU/dL Ur Leukocyte Esterase NEGATIVE (NEGATIVE) Urine RBC 1-4 (0-2/HPF) Urine WBC 0-1 (0-5/HPF) Ur Epithelial Cells OCCASIONAL (NONE-FEW) Urine Bacteria RARE (NEGATIVE) Urine Mucus MODERATE (NONE-MOD) SARS-CoV-2 RNA (RT-PCR) NEGATIVE (NEGATIVE) Francesco Results Last 24 Hours: Microbiology 02/14/20 17:17 Influenza Type A Antigen Screen - Final Nasopharyngeal Swab NEGATIVE INFLUENZA A VIRUS AG REFERENCE RANGE: NEGATIVE Influenza Type B Antigen Screen - Final NEGATIVE INFLUENZA B VIRUS AG REFERENCE RANGE: NEGATIVE 02/14/20 17:28 Anaerobic Blood Culture - Final Blood - Venous - Lab Draw Med Orders - Current: Current Medications Albuterol/Ipratropium (Duoneb 3.0-0.5 Mg/3 Ml) 3 ml NEB Q4HRRT PRN PRN Reason: Shortness Of Breath/wheezing Last Admin: 02/15/20 07:40 Dose: 3 ml Enoxaparin Sodium (Lovenox) 40 mg SUBCUT Q24H [facility] Lactated Ringer's (Ringers, Lactated) 1,000 mls @ 100 mls/hr IV ASDIRECTED RUI Last Admin: 02/14/20 22:08 Dose: 100 mls/hr Azithromycin 500 mg/ Sodium (Chloride) 250 mls @ 250 mls/hr IV Q24H RUI Last Admin: 02/14/20 23:59 Dose: 250 mls/hr Ceftriaxone Sodium/Dextrose 1 (gm/ Premix) 50 mls @ 100 mls/hr IV Q24H [facility] Morphine Sulfate (Morphine) 2 mg IVPUSH Q4H PRN PRN Reason: Pain Last Admin: 02/15/20 07:41 Dose: 2 mg Sodium Chloride (Saline Flush) 10 ml FLUSH ASDIRECTED PRN PRN Reason: Keep Vein Open Sodium Chloride (Saline Flush) 2.5 ml FLUSH ASDIRECTED PRN PRN Reason: Keep Vein Open Sodium Chloride (Normal Saline) 10 ml IV ASDIRECTED PRN PRN Reason: IV Use Discontinued Medications Furosemide (Lasix) 20 mg IVPUSH NOW ONE Stop: 02/14/20 23:43 Last Admin: 02/14/20 23:55 Dose: 20 mg Heparin Sodium (Porcine) (Heparin Sodium) 5,000 units SUBCUT Q8H [facility] Last Admin: 02/14/20 22:21 Dose: Not Given Heparin Sodium (Porcine) (Heparin Sodium) 5,000 units SUBCUT Q8H [facility] Last Admin: 02/15/20 05:13 Dose: 5,000 units Azithromycin 500 mg/ Sodium (Chloride) 250 mls @ 250 mls/hr IV Q24H [facility] Ceftriaxone Sodium 1 gm/ (Sodium Chloride) 50 mls @ 100 mls/hr IV Q24H [facility] Last Admin: 02/15/20 00:14 Dose: 100 mls/hr - Exam General: Alert, Oriented, Cooperative, No Acute Distress Lungs: Wheezing (scant wheezing to R middle lobe) Cardiovascular: Regular Rate, Regular Rhythm, No Murmurs GI/Abdominal Exam: Normal Bowel Sounds, Soft, Non-Tender, Other (obese abdomen) Back Exam: Normal Inspection Extremities: Normal Inspection, Normal Range of Motion, Non-Tender Neurological: No New Focal Deficit Psy/Mental Status: Alert, Normal Affect, Normal Mood Sepsis Event Note - Evaluation Sepsis Screening Result: No Definite Risk - Focused Exam Vital Signs: Vital Signs Temp Pulse Resp BP Pulse Ox 02/15/20 07:44 97.8 F 76 20 118/72 91 L 02/15/20 04:48 97.9 F 76 20 116/56 L 92 L 02/15/20 00:17 97.8 F 81 20 118/65 92 L Date Exam was Performed: 02/15/20 Time Exam was Performed: 12:44 - Problem List & Annotations (1) Hypoxia SNOMED Code(s): 073380485 Code(s): R09.02 - HYPOXEMIA Status: Acute Current Visit: Yes (2) Dyspnea SNOMED Code(s): 553709856 Code(s): R06.00 - DYSPNEA, UNSPECIFIED Status: Acute Current Visit: Yes - Problem List Review Problem List Initiated/Reviewed/Updated: Yes - My Orders Last 24 Hours: My Active Orders 02/15/20 08:21 CBC WITH AUTO DIFF [HEME] Routine COMPREHENSIVE METABOLIC PN,CMP [CHEM] Routine 02/15/20 09:13 Ang Chest [CT] Urgent - Plan Plan:: This 34 year old male admitted with hypoxia, dyspnea suspected viral pneumonia or pulmonary edema 1. Hypoxia, dyspnea Viral pneumonia - Continues to need 5 L NC with sats 92% - Influenza swab negative, COVID negative. May consider retesting COVID tomorrow to evaluate for false negative. - CXR shows possible viral pneumonia vs pulmonary edema. Patient reports recent long travel in car. No leg pain. - CT angio of chest reveals diffuse parenchymal densities through both sides of the chest. PE ruled out. - Will retest COVID today due to CT findings - Blood cultures pending - Continue oxygenation with NC to maintain sats>92% - Tolerating diet well and drinking well. Will stop IVFs. - Monitor and replete electrolytes - MDI PRN for wheezing and dyspnea, DC duonebs due to concern of COVID, limit aerosolizing procedures. - Droplet precaution - Respiratory panel pending from ED. 2. Hematuria - Noted in UA and patient reports small amount in urine - Flank pain on admission, CT abdomen/pelvis obtained today reveals no renal stones. and otherwise normal - Monitor. VTE prophylaxis: Lovenox Dispo: Change to inpatient status as patient will need greater than 2 midnights
[2020-02-15 10:54] LABS: BLOOD UREA NITROGEN,BUN 11 mg/dL (7.0-18.0); CHLORIDE,CL 102 mmol/L (98-107); GLUCOSE RANDOM 99 mg/dL (74-106); POTASSIUM,K 3.9 mmol/L (3.5-5.1); SODIUM,NA 142 mmol/L (136-148)
[2020-02-15] MEDS: Lactated Ringers 1,000 ML IV SCH (10:56)
--- NOTE | 2020-02-15 12:10 | CT ---
CT chest Technique: Multiple axial sections were obtained through the chest. Intravenous contrast was utilized. Study performed as a pulmonary angiogram protocol. Findings: Pulmonary arteries are moderately well opacified. No filling defects within the main or segmental branches are seen. Smaller subsegmental pulmonary emboli could be missed. Mediastinum shows several slightly prominent lymph nodes believed to be on an inflammatory basis. Mild gynecomastia is noted. Aorta shows no aneurysm. Lungs show diffuse patchy areas of increased density throughout both sides of the chest. Bone window settings were reviewed which shows no acute osseous finding. Impression: 1. Diffuse parenchymal densities throughout both sides of the chest raising the possibility of diffuse pneumonia. 2. No definite findings of pulmonary embolism are seen. Smaller subsegmental pulmonary emboli could be missed. 3. Mild gynecomastia. Diagnostic code #5 This report was dictated in MDT
--- NOTE | 2020-02-15 12:10 | CT ---
CT abdomen and pelvis Technique: Multiple axial sections were obtained from above the dome of the diaphragm inferiorly through the pubic symphysis. Intravenous and oral contrast not utilized. Study performed as a ureteral stone protocol. Findings: Kidneys show no abnormal calcifications. No ureteral dilatation or ureteral stone is seen. No bladder calculi are seen. Patchy areas of increased density are noted within both lung bases. Please correlate if patient has infectious symptoms for this to represent areas of pneumonia. Liver shows fatty infiltration. Spleen size is normal. Adrenal glands show no nodule. Pancreas shows no discrete abnormality. Gallbladder contains no calcified gallstones. Aorta shows no aneurysm. No retroperitoneal adenopathy or mesenteric abnormalities are appreciated. No pelvic mass or adenopathy is seen. No free fluid or inflammatory change is appreciated. Appendix felt to be visualized and shows a calcification presumably due to appendicolith. No inflammatory change around the appendix is seen. Bone window settings were reviewed which appear within normal limits for the patient's age. Impression: 1. No ureteral stone dilatation or ureteral stone is seen. No renal calculi are seen. 2. Fatty infiltration within the liver. 3. Patchy increased density within both lung bases raising the possibility of diffuse pneumonia. Diagnostic code #3 This report was dictated in MDT
[2020-02-15] MEDS ORDERED: Albuterol/Ipratropium 4 GM Inhalation Spray INH PRN (12:47)
[2020-02-15] MEDS: Enoxaparin 40 MG/0.4 ML Syringe SUBCUT SCH (15:57)
[2020-02-15] MEDS ORDERED: guaiFENesin/Dextromethorphan 100-10 MG/5 ML Soln 10 ML Cup PO PRN (20:46)
[2020-02-15] MEDS: cefTRIAXone 1 GM in Premix Bag 1 BAG IV SCH (23:00)
[2020-02-15] MEDS: Azithromycin 500 MG in Sodium Chloride 0.9% 250 ML IV SCH (23:51)
[2020-02-16] MEDS: Morphine 2 MG/ML Syringe IVPUSH PRN (04:54)
--- NOTE | 2020-02-16 07:56 | PCM.PN ---
- General Info Date of Service: 02/16/20 Admission Dx/Problem (Free Text): Admission Diagnosis/Problem Admission Diagnosis/Problem Viral pneumonia Subjective Update: Feeling tired today. No chest pain. Having some pleuritic pain with coughing. Counseled on the need to deep breath and cough and use IS more. Reports having some intermittent streak of blood in urine. no flank pain. Functional Status: Reports: Pain Controlled, Tolerating Diet, Ambulating, Urinating - Review of Systems HEENT: Reports: No Symptoms. Denies: Headaches, Visual Changes Pulmonary: Reports: Shortness of Breath, Pleuritic Chest Pain, Cough. Denies: Sputum, Wheezing Cardiovascular: Reports: No Symptoms Gastrointestinal: Reports: No Symptoms. Denies: Abdominal Pain, Nausea, Vomiting Genitourinary: Reports: Hematuria. Denies: Dysuria, Frequency Musculoskeletal: Reports: No Symptoms Skin: Reports: No Symptoms Neurological: Reports: No Symptoms Psychiatric: Reports: No Symptoms - Patient Data Vitals - Most Recent: Last Vital Signs Temp 97.2 F 02/16/20 03:32 Pulse 79 02/16/20 03:32 Resp 20 02/16/20 03:32 BP 132/73 02/16/20 03:32 Pulse Ox 93 L 02/16/20 03:32 Weight - Most Recent: 134.037 kg I&O - Last 24 Hours: Intake & Output 02/15/20 02/16/20 02/16/20 22:59 06:59 14:59 Intake Total 800 Output Total 1100 Balance -300 Lab Results Last 24 Hours: Laboratory Results - last 24 hr 02/15/20 02/15/20 02/15/20 Range/Units 08:50 08:50 13:55 WBC 6.01 (4.0-11.0) K/uL RBC 5.23 (4.50-5.90) M/uL Hgb 11.5 L (13.0-17.0) g/dL Hct 37.4 L (38.0-50.0) % MCV 71.5 L (80.0-98.0) fL MCH 22.0 L (27.0-32.0) pg MCHC 30.7 L (31.0-37.0) g/dL RDW Std Deviation 45.4 (28.0-62.0) fl RDW Coeff of Mildred 17 H (11.0-15.0) % Plt Count 372 (150-400) K/uL MPV 9.70 (7.40-12.00) fL Neut % (Auto) 67.2 (48.0-80.0) % Lymph % (Auto) 22.3 (16.0-40.0) % [place] % (Auto) 9.3 (0.0-15.0) % Eos % (Auto) 0.7 (0.0-7.0) % Baso % (Auto) 0.5 (0.0-1.5) % Neut # (Auto) 4.0 (1.4-5.7) K/uL Lymph # (Auto) 1.3 (0.6-2.4) K/uL [place] # (Auto) 0.6 (0.0-0.8) K/uL Eos # (Auto) 0.0 (0.0-0.7) K/uL Baso # (Auto) 0.0 (0.0-0.1) K/uL Nucleated RBC % 0.0 /100WBC Nucleated RBCs # 0 K/uL Sodium 142 (136-148) mmol/L Potassium 3.9 (3.5-5.1) mmol/L Chloride 102 (98-107) mmol/L Carbon Dioxide 23.0 (21.0-32.0) mmol/L BUN 11 (7.0-18.0) mg/dL Creatinine 0.7 L (0.8-1.3) mg/dL Est Cr Clr Drug Dosing 152.08 mL/min Estimated GFR (MDRD) > 60.0 ml/min Glucose 99 (74-106) mg/dL Calcium 8.5 (8.5-10.1) mg/dL Total Bilirubin 0.4 (0.2-1.0) mg/dL AST 49 H (15-37) IU/L ALT 40 (14-63) IU/L Alkaline Phosphatase 58 (46-116) U/L Total Protein 6.8 (6.4-8.2) g/dL Albumin 3.0 L (3.4-5.0) g/dL Globulin 3.8 (2.6-4.0) g/dL Albumin/Globulin Ratio 0.8 L (0.9-1.6) SARS-CoV-2 RNA (RT-PCR) NEGATIVE (NEGATIVE) Francesco Results Last 24 Hours: Microbiology 02/14/20 17:28 Aerobic Blood Culture - Preliminary Blood - Venous - Lab Draw NO GROWTH AFTER 1 DAY Anaerobic Blood Culture - Final 02/14/20 17:01 Aerobic Blood Culture - Preliminary Blood - Venous NO GROWTH AFTER 1 DAY Anaerobic Blood Culture - Preliminary NO GROWTH AFTER 1 DAY Med Orders - Current: Current Medications Albuterol/Ipratropium (Combivent Respimat) 0 gm INH Q4H PRN PRN Reason: Dyspnea/wheezing Azithromycin (Zithromax) 500 mg PO Q24H RUI Enoxaparin Sodium (Lovenox) 40 mg SUBCUT Q24H RUI Last Admin: 02/15/20 15:57 Dose: 40 mg Guaifenesin/Dextromethorphan (Robitussin Dm) 5 ml PO Q4H PRN PRN Reason: mucous Last Admin: 02/15/20 21:55 Dose: 5 ml Ceftriaxone Sodium/Dextrose 1 (gm/ Premix) 50 mls @ 100 mls/hr IV Q24H [facility] Last Admin: 02/15/20 23:00 Dose: 100 mls/hr Morphine Sulfate (Morphine) 2 mg IVPUSH Q4H PRN PRN Reason: Pain Last Admin: 02/16/20 04:54 Dose: 2 mg Sodium Chloride (Saline Flush) 10 ml FLUSH ASDIRECTED PRN PRN Reason: Keep Vein Open Sodium Chloride (Saline Flush) 2.5 ml FLUSH ASDIRECTED PRN PRN Reason: Keep Vein Open Sodium Chloride (Normal Saline) 10 ml IV ASDIRECTED PRN PRN Reason: IV Use Discontinued Medications Albuterol/Ipratropium (Duoneb 3.0-0.5 Mg/3 Ml) 3 ml NEB Q4HRRT PRN PRN Reason: Shortness Of Breath/wheezing Last Admin: 02/15/20 07:40 Dose: 3 ml Furosemide (Lasix) 20 mg IVPUSH NOW ONE Stop: 02/14/20 23:43 Last Admin: 02/14/20 23:55 Dose: 20 mg Heparin Sodium (Porcine) (Heparin Sodium) 5,000 units SUBCUT Q8H RUI Last Admin: 02/14/20 22:21 Dose: Not Given Heparin Sodium (Porcine) (Heparin Sodium) 5,000 units SUBCUT Q8H RUI Last Admin: 02/15/20 05:13 Dose: 5,000 units Lactated Ringer's (Ringers, Lactated) 1,000 mls @ 100 mls/hr IV ASDIRECTED [facility] Last Admin: 02/15/20 10:56 Dose: 100 mls/hr Azithromycin 500 mg/ Sodium (Chloride) 250 mls @ 250 mls/hr IV Q24H [facility] Ceftriaxone Sodium 1 gm/ (Sodium Chloride) 50 mls @ 100 mls/hr IV Q24H [facility] Last Admin: 02/15/20 00:14 Dose: 100 mls/hr Azithromycin 500 mg/ Sodium (Chloride) 250 mls @ 250 mls/hr IV Q24H [facility] Last Admin: 02/15/20 23:51 Dose: 250 mls/hr - Exam Quality Assessment: Supplemental Oxygen (4-5 L ) General: Alert, Oriented, Cooperative, No Acute Distress Lungs: Clear to Auscultation, Normal Respiratory Effort Cardiovascular: Regular Rate, Regular Rhythm GI/Abdominal Exam: Normal Bowel Sounds, Soft, Non-Tender Extremities: Normal Inspection, Normal Range of Motion, Non-Tender, No Pedal Edema Neurological: No New Focal Deficit Psy/Mental Status: Alert, Normal Affect, Normal Mood - Problem List & Annotations (1) Hypoxia SNOMED Code(s): 179873413 Code(s): R09.02 - HYPOXEMIA Status: Acute Current Visit: Yes (2) Dyspnea SNOMED Code(s): 288968914 Code(s): R06.00 - DYSPNEA, UNSPECIFIED Status: Acute Current Visit: Yes (3) Viral pneumonia SNOMED Code(s): 25686633 Code(s): J12.9 - VIRAL PNEUMONIA, UNSPECIFIED Status: Acute Current Visit : Yes - Problem List Review Problem List Initiated/Reviewed/Updated: Yes - My Orders Last 24 Hours: My Active Orders 02/15/20 10:01 Patient Status [ADT] Stat 02/15/20 12:47 RT Post Treatment Assessment [RC] Click to Edit RT Pre-Treatment Assessment [RC] Click to Edit Albuterol/Ipratropium [Combivent Respimat] See Dose Instructions INH Q4H PRN 02/16/20 07:52 BMP [BASIC METABOLIC PANEL,BMP] [CHEM] Routine CBC WITH AUTO DIFF [HEME] Routine 02/16/20 07:55 IS (RT) [RT Incentive Spirometry] [RC] Q1HWA - Plan Plan:: This 34 year old male admitted with hypoxia, dyspnea suspected viral pneumonia or pulmonary edema 1. Hypoxia, dyspnea Viral or atypical pneumonia - Continues to need 5 L NC with sats 92% - Will trial Bipap 06/12 today to help lower oxygen requirements. - Continue Rocephin and Azithromycin. - 2nd COVID negative. Respiratory panel negative as well. - CT angio of chest reveals diffuse parenchymal densities through both sides of the chest. PE ruled out. - Blood cultures negative x 1 day - Continue oxygenation with NC to maintain sats>92% - Tolerating diet well and drinking well. - Monitor and replete electrolytes - MDI PRN for wheezing and dyspnea, DC duonebs due to concern of COVID, limit aerosolizing procedures. - Droplet precaution - Counseled extensively on IS use and CDB. 2. Hematuria - Monitor. VTE prophylaxis: Lovenox Dispo: 2-3 days pending improvement Sepsis Event Note - Evaluation Sepsis Screening Result: No Definite Risk - Focused Exam Vital Signs: Vital Signs Temp Pulse Resp BP Pulse Ox 02/16/20 03:32 97.2 F 79 20 132/73 93 L 02/16/20 01:00 92 L 02/15/20 23:10 97.8 F 78 20 125/78 92 L 02/15/20 22:00 93 L Date Exam was Performed: 02/16/20 Time Exam was Performed: 11:00
[2020-02-16 09:26] LABS: BLOOD UREA NITROGEN,BUN 10 mg/dL (7.0-18.0); CARBON DIOXIDE,CO2 25.6 mmol/L (21.0-32.0); CHLORIDE,CL 103 mmol/L (98-107); GLUCOSE RANDOM 119 mg/dL (74-106); POTASSIUM,K 3.6 mmol/L (3.5-5.1); SODIUM,NA 138 mmol/L (136-148)
[2020-02-16] MEDS ORDERED: Ibuprofen 400 MG Tab PO PRN (13:06)
[2020-02-16] MEDS ORDERED: oxyCODONE 5 MG Tab PO PRN (13:07)
[2020-02-16] MEDS: Acetaminophen 325 MG Tab PO PRN ×2 (13:31→20:47)
[2020-02-16] MEDS: Enoxaparin 40 MG/0.4 ML Syringe SUBCUT SCH (16:15)
[2020-02-16] MEDS: Fluticasone Propionate Nasal Spray 16 GM Bottle NASBOTH SCH (20:43)
[2020-02-16] MEDS: cefTRIAXone 1 GM in Premix Bag 1 BAG IV SCH (22:59)
[2020-02-16] MEDS: Azithromycin 250 MG Tab PO SCH (23:06)
[2020-02-17] MEDS: Fluticasone Propionate Nasal Spray 16 GM Bottle NASBOTH SCH ×3 (05:09→21:30)
[2020-02-17 06:30] LABS: BLOOD UREA NITROGEN,BUN 10 mg/dL (7.0-18.0); CARBON DIOXIDE,CO2 26.7 mmol/L (21.0-32.0); CHLORIDE,CL 103 mmol/L (98-107); GLUCOSE RANDOM 116 mg/dL (74-106); POTASSIUM,K 3.7 mmol/L (3.5-5.1); SODIUM,NA 138 mmol/L (136-148)
--- NOTE | 2020-02-17 07:51 | PCM.PN ---
- General Info Date of Service: 02/17/20 Admission Dx/Problem (Free Text): Admission Diagnosis/Problem Admission Diagnosis/Problem Viral pneumonia Subjective Update: Sleeping this morning, No chest pain. Reports feeling a little improved. Tolerating Bipap intermittently. Functional Status: Reports: Pain Controlled, Tolerating Diet, Ambulating, Urinating - Review of Systems HEENT: Reports: No Symptoms Pulmonary: Reports: Shortness of Breath, Pleuritic Chest Pain, Cough, Sputum Cardiovascular: Reports: No Symptoms. Denies: Chest Pain, Palpitations Gastrointestinal: Reports: No Symptoms. Denies: Abdominal Pain, Nausea, Vomiting Genitourinary: Reports: No Symptoms. Denies: Dysuria, Frequency, Burning Skin: Reports: No Symptoms Neurological: Reports: No Symptoms Psychiatric: Reports: No Symptoms - Patient Data Vitals - Most Recent: Last Vital Signs Temp 98.2 F 02/17/20 03:47 Pulse 79 02/17/20 03:47 Resp 26 H 02/17/20 03:47 BP 129/73 02/17/20 03:47 Pulse Ox 92 L 02/17/20 03:47 Weight - Most Recent: 134.037 kg I&O - Last 24 Hours: Intake & Output 02/16/20 02/17/20 02/17/20 22:59 06:59 14:59 Intake Total 1800 850 Output Total 1200 650 Balance 600 200 Lab Results Last 24 Hours: Laboratory Results - last 24 hr 02/14/20 02/16/20 02/16/20 Range/Units 17:17 08:45 08:45 WBC 6.53 (4.0-11.0) K/uL RBC 5.25 (4.50-5.90) M/uL Hgb 11.7 L (13.0-17.0) g/dL Hct 37.6 L (38.0-50.0) % MCV 71.6 L (80.0-98.0) fL MCH 22.3 L (27.0-32.0) pg MCHC 31.1 (31.0-37.0) g/dL RDW Std Deviation 44.4 (28.0-62.0) fl RDW Coeff of Mildred 17 H (11.0-15.0) % Plt Count 409 H (150-400) K/uL MPV 9.30 (7.40-12.00) fL Neut % (Auto) 67.4 (48.0-80.0) % Lymph % (Auto) 20.5 (16.0-40.0) % [place] % (Auto) 10.7 (0.0-15.0) % Eos % (Auto) 1.1 (0.0-7.0) % Baso % (Auto) 0.3 (0.0-1.5) % Neut # (Auto) 4.4 (1.4-5.7) K/uL Lymph # (Auto) 1.3 (0.6-2.4) K/uL [place] # (Auto) 0.7 (0.0-0.8) K/uL Eos # (Auto) 0.1 (0.0-0.7) K/uL Baso # (Auto) 0.0 (0.0-0.1) K/uL Nucleated RBC % 0.0 /100WBC Nucleated RBCs # 0 K/uL Sodium 138 (136-148) mmol/L Potassium 3.6 (3.5-5.1) mmol/L Chloride 103 (98-107) mmol/L Carbon Dioxide 25.6 (21.0-32.0) mmol/L BUN 10 (7.0-18.0) mg/dL Creatinine 0.6 L (0.8-1.3) mg/dL Est Cr Clr Drug Dosing 177.43 mL/min Estimated GFR (MDRD) > 60.0 ml/min Glucose 119 H (74-106) mg/dL Calcium 8.5 (8.5-10.1) mg/dL Adenovirus (PCR) Not Detected (Not Detected) B. pertussis DNA (PCR) Not Detected (Not Detected) B.parapertussis DNA PCR Not Detected (Not Detected) C. pneumoniae DNA (PCR) Not Detected (Not Detected) Coronavirus (PCR) Not Detected (Not Detected) Human Metapneumovir PCR Not Detected (Not Detected) Influenza A (RT-PCR) Not Detected (Not Detected) Influenza B (RT-PCR) Not Detected (Not Detected) M. pneumoniae (PCR) Not Detected (Not Detected) Parainfluen 1,2,3,4 PCR Not Detected (Not Detected) RSV (PCR) Not Detected (Not Detected) Entero/Rhino (PCR) Not Detected (Not Detected) 02/17/20 02/17/20 Range/Units 06:00 06:00 WBC 6.11 (4.0-11.0) K/uL RBC 5.29 (4.50-5.90) M/uL Hgb 11.8 L (13.0-17.0) g/dL Hct 37.7 L (38.0-50.0) % MCV 71.3 L (80.0-98.0) fL MCH 22.3 L (27.0-32.0) pg MCHC 31.3 (31.0-37.0) g/dL RDW Std Deviation 43.4 (28.0-62.0) fl RDW Coeff of Mildred 17 H (11.0-15.0) % Plt Count 404 H (150-400) K/uL MPV 9.20 (7.40-12.00) fL Neut % (Auto) 64.0 (48.0-80.0) % Lymph % (Auto) 21.9 (16.0-40.0) % [place] % (Auto) 11.9 (0.0-15.0) % Eos % (Auto) 2.0 (0.0-7.0) % Baso % (Auto) 0.2 (0.0-1.5) % Neut # (Auto) 3.9 (1.4-5.7) K/uL Lymph # (Auto) 1.3 (0.6-2.4) K/uL [place] # (Auto) 0.7 (0.0-0.8) K/uL Eos # (Auto) 0.1 (0.0-0.7) K/uL Baso # (Auto) 0.0 (0.0-0.1) K/uL Nucleated RBC % 0.0 /100WBC Nucleated RBCs # 0 K/uL Sodium 138 (136-148) mmol/L Potassium 3.7 (3.5-5.1) mmol/L Chloride 103 (98-107) mmol/L Carbon Dioxide 26.7 (21.0-32.0) mmol/L BUN 10 (7.0-18.0) mg/dL Creatinine 0.8 (0.8-1.3) mg/dL Est Cr Clr Drug Dosing 133.07 mL/min Estimated GFR (MDRD) > 60.0 ml/min Glucose 116 H (74-106) mg/dL Calcium 8.7 (8.5-10.1) mg/dL Adenovirus (PCR) (Not Detected) B. pertussis DNA (PCR) (Not Detected) B.parapertussis DNA PCR (Not Detected) C. pneumoniae DNA (PCR) (Not Detected) Coronavirus (PCR) (Not Detected) Human Metapneumovir PCR (Not Detected) Influenza A (RT-PCR) (Not Detected) Influenza B (RT-PCR) (Not Detected) M. pneumoniae (PCR) (Not Detected) Parainfluen 1,2,3,4 PCR (Not Detected) RSV (PCR) (Not Detected) Entero/Rhino (PCR) (Not Detected) Francesco Results Last 24 Hours: Microbiology 02/14/20 17:28 Aerobic Blood Culture - Preliminary Blood - Venous - Lab Draw NO GROWTH AFTER 2 DAYS Anaerobic Blood Culture - Final 02/14/20 17:01 Aerobic Blood Culture - Preliminary Blood - Venous NO GROWTH AFTER 2 DAYS Anaerobic Blood Culture - Preliminary NO GROWTH AFTER 2 DAYS Med Orders - Current: Current Medications Acetaminophen (Tylenol) 650 mg PO Q4H PRN PRN Reason: Pain Last Admin: 02/16/20 20:47 Dose: 650 mg Albuterol/Ipratropium (Combivent Respimat) 0 gm INH Q4H PRN PRN Reason: Dyspnea/wheezing Azithromycin (Zithromax) 500 mg PO Q24H [facility] Last Admin: 02/16/20 23:06 Dose: 500 mg Enoxaparin Sodium (Lovenox) 40 mg SUBCUT Q24H RUI Last Admin: 02/16/20 16:15 Dose: 40 mg Fluticasone Propionate (Flonase) 0 gm NASBOTH Q8H RUI Last Admin: 02/17/20 05:09 Dose: 1 spray Guaifenesin/Dextromethorphan (Robitussin Dm) 5 ml PO Q4H PRN PRN Reason: mucous Last Admin: 02/15/20 21:55 Dose: 5 ml Ceftriaxone Sodium/Dextrose 1 (gm/ Premix) 50 mls @ 100 mls/hr IV Q24H [facility] Last Admin: 02/16/20 22:59 Dose: 100 mls/hr Ibuprofen (Motrin) 400 mg PO Q6H PRN PRN Reason: Pain Last Admin: 02/17/20 03:43 Dose: 400 mg Oxycodone HCl (Oxycodone) 5 mg PO Q6H PRN PRN Reason: Pain Sodium Chloride (Saline Flush) 10 ml FLUSH ASDIRECTED PRN PRN Reason: Keep Vein Open Sodium Chloride (Saline Flush) 2.5 ml FLUSH ASDIRECTED PRN PRN Reason: Keep Vein Open Sodium Chloride (Normal Saline) 10 ml IV ASDIRECTED PRN PRN Reason: IV Use Discontinued Medications Albuterol/Ipratropium (Duoneb 3.0-0.5 Mg/3 Ml) 3 ml NEB Q4HRRT PRN PRN Reason: Shortness Of Breath/wheezing Last Admin: 02/15/20 07:40 Dose: 3 ml Furosemide (Lasix) 20 mg IVPUSH NOW ONE Stop: 02/14/20 23:43 Last Admin: 02/14/20 23:55 Dose: 20 mg Heparin Sodium (Porcine) (Heparin Sodium) 5,000 units SUBCUT Q8H [facility] Last Admin: 02/14/20 22:21 Dose: Not Given Heparin Sodium (Porcine) (Heparin Sodium) 5,000 units SUBCUT Q8H [facility] Last Admin: 02/15/20 05:13 Dose: 5,000 units Lactated Ringer's (Ringers, Lactated) 1,000 mls @ 100 mls/hr IV ASDIRECTED [facility] Last Admin: 02/15/20 10:56 Dose: 100 mls/hr Azithromycin 500 mg/ Sodium (Chloride) 250 mls @ 250 mls/hr IV Q24H [facility] Ceftriaxone Sodium 1 gm/ (Sodium Chloride) 50 mls @ 100 mls/hr IV Q24H [facility] Last Admin: 02/15/20 00:14 Dose: 100 mls/hr Azithromycin 500 mg/ Sodium (Chloride) 250 mls @ 250 mls/hr IV Q24H [facility] Last Admin: 02/15/20 23:51 Dose: 250 mls/hr Morphine Sulfate (Morphine) 2 mg IVPUSH Q4H PRN PRN Reason: Pain Last Admin: 02/16/20 04:54 Dose: 2 mg - Exam General: Alert, Oriented, Cooperative, No Acute Distress Lungs: Clear to Auscultation, Normal Respiratory Effort Cardiovascular: Regular Rate, Regular Rhythm GI/Abdominal Exam: Normal Bowel Sounds, Soft, Non-Tender Extremities: Normal Inspection, Normal Range of Motion, Non-Tender, No Pedal Edema Neurological: No New Focal Deficit Psy/Mental Status: Alert, Normal Affect, Normal Mood Sepsis Event Note - Evaluation Sepsis Screening Result: No Definite Risk - Focused Exam Vital Signs: Vital Signs Temp Pulse Resp BP Pulse Ox Pulse Ox 02/17/20 03:47 98.2 F 79 26 H 129/73 92 L 02/17/20 03:45 26 H 85 L 02/16/20 23:05 96.8 F L 72 24 H 117/71 96 02/16/20 20:05 23 H 95 02/16/20 20:00 95 Date Exam was Performed: 02/17/20 Time Exam was Performed: 10:59 - Problem List & Annotations (1) Hypoxia SNOMED Code(s): 709531047 Code(s): R09.02 - HYPOXEMIA Status: Acute Current Visit: Yes (2) Dyspnea SNOMED Code(s): 741958912 Code(s): R06.00 - DYSPNEA, UNSPECIFIED Status: Acute Current Visit: Yes (3) Viral pneumonia SNOMED Code(s): 23853603 Code(s): J12.9 - VIRAL PNEUMONIA, UNSPECIFIED Status: Acute Current Visit : Yes - Problem List Review Problem List Initiated/Reviewed/Updated: Yes - My Orders Last 24 Hours: My Active Orders 02/16/20 07:55 IS (RT) [RT Incentive Spirometry] [RC] Q1HWA 02/16/20 10:19 BIPAP Adult [RT BiPAP/CPAP] [RC] ASDIRECTED 02/16/20 13:06 Acetaminophen [Tylenol] 650 mg PO Q4H PRN Ibuprofen [Motrin] 400 mg PO Q6H PRN 02/16/20 13:07 oxyCODONE 5 mg PO Q6H PRN 02/16/20 14:18 May Shower [RC] ASDIRECTED 02/18/20 05:11 BMP [BASIC METABOLIC PANEL,BMP] [CHEM] AM CBC WITH AUTO DIFF [HEME] AM 02/19/20 05:11 BMP [BASIC METABOLIC PANEL,BMP] [CHEM] AM CBC WITH AUTO DIFF [HEME] AM - Plan Plan:: This 34 year old male admitted with hypoxia, dyspnea suspected viral pneumonia or pulmonary edema 1. Hypoxia, dyspnea Viral or atypical pneumonia - Bipap 10/4 overnight and did well. Switched to NC today, 3 L. Continue to try wean as possible - Continue Rocephin and Azithromycin. - Blood cultures negative x 2 day - Continue oxygenation with NC to maintain sats>92% - Tolerating diet well and drinking well. - MDI PRN for wheezing and dyspnea - Counseled extensively on IS use and CDB. VTE prophylaxis: Lovenox Dispo: 2-3 days pending improvement
[2020-02-17] MEDS: Acetaminophen 325 MG Tab PO PRN ×2 (13:57→22:57)
[2020-02-17] MEDS: Enoxaparin 40 MG/0.4 ML Syringe SUBCUT SCH (17:06)
[2020-02-17] MEDS: cefTRIAXone 1 GM in Premix Bag 1 BAG IV SCH (22:59)
[2020-02-17] MEDS: Azithromycin 250 MG Tab PO SCH (22:59)
[2020-02-18 06:32] LABS: BLOOD UREA NITROGEN,BUN 8 mg/dL (7.0-18.0); CARBON DIOXIDE,CO2 24.4 mmol/L (21.0-32.0); CHLORIDE,CL 103 mmol/L (98-107); GLUCOSE RANDOM 112 mg/dL (74-106); POTASSIUM,K 4.1 mmol/L (3.5-5.1); SODIUM,NA 139 mmol/L (136-148)
[2020-02-18] MEDS: Fluticasone Propionate Nasal Spray 16 GM Bottle NASBOTH SCH (06:50)
--- NOTE | 2020-02-18 12:21 | PCM.DCSUM1 ---
Discharge Summary - Discharge Data Discharge Date: 02/18/20 Discharge Disposition: Home, Self-Care 01 Condition: Good - Referral to Home Health Primary Care Physician: PCP None - Patient Summary/Data Hospital Course: 34-year-old male who was admitted for atypical pneumonia when he presented with cough, and shortness of breath. Patient was hypoxic on arrival with an initial room air saturation of 88%, hemodynamically stable, and appeared nontoxic. EKG showed no acute ischemic changes. CBC shows a mild macrocytic anemia. Troponin and BNP were within normal limits. COVID-19 nasopharyngeal PCR was negative. Chest x-ray demonstrated diffuse increased density seen in a perihilar distribution bilaterally. CT angio of chest was negative for PE and reported bilateral patchy infiltrate. Patient was treated with Rocephin and azithromycin. HE did require Bipap overnight but was then weaned off oxygen. Today patient is feeling well and requesting discharge home. He was discharge home with oral Keflex and azithromycin to follow up with Dr. Benitez. - Patient Instructions Diet: Regular Diet as Tolerated Notify Provider of: Fever, Increased Pain, Nausea and/or Vomiting - Discharge Plan Prescriptions/Med Rec: cephALEXin [Keflex] 500 mg PO Q12HR #10 cap Azithromycin 250 mg PO DAILY #5 tablet Home Medications: Home Meds Azithromycin 250 mg PO DAILY #5 tablet 02/18/20 [Rx] cephALEXin [Keflex] 500 mg PO Q12HR #10 cap 02/18/20 [Rx] Patient Handouts: Community-Acquired Pneumonia, Adult, [id number] Referrals: Jomar Clark MD [Physician] - 02/22/20 3:00 pm - Discharge Summary/Plan Comment DC Time >30 min.: No - Patient Data Vitals - Most Recent: Last Vital Signs Temp 36.2 C 02/18/20 08:00 Pulse 81 02/18/20 08:00 Resp 19 02/18/20 08:00 BP 129/80 02/18/20 08:00 Pulse Ox 95 02/18/20 10:00 Weight - Most Recent: 134.037 kg I&O - Last 24 hours: Intake & Output 02/17/20 02/18/20 02/18/20 22:59 06:59 14:59 Intake Total 860 450 Output Total 700 300 Balance 160 150 Lab Results - Last 24 hrs: Laboratory Results - last 24 hr 02/18/20 02/18/20 Range/Units 05:58 05:58 WBC 6.35 (4.0-11.0) K/uL RBC 5.17 (4.50-5.90) M/uL Hgb 11.6 L (13.0-17.0) g/dL Hct 35.9 L (38.0-50.0) % MCV 69.4 L (80.0-98.0) fL MCH 22.4 L (27.0-32.0) pg MCHC 32.3 (31.0-37.0) g/dL RDW Std Deviation 42.4 (28.0-62.0) fl RDW Coeff of Mildred 17 H (11.0-15.0) % Plt Count 475 H (150-400) K/uL MPV 9.30 (7.40-12.00) fL Add Manual Diff YES Neutrophils % (Manual) 56 (48.0-80.0) % Lymphocytes % (Manual) 29 (16.0-40.0) % Monocytes % (Manual) 15 (0.0-15.0) % Absolute Seg Neuts 3.6 (1.4-5.7) Lymphocytes # (Manual) 1.8 (0.6-2.4) Monocytes # (Manual) 1.0 H (0.0-0.8) Sodium 139 (136-148) mmol/L Potassium 4.1 (3.5-5.1) mmol/L Chloride 103 (98-107) mmol/L Carbon Dioxide 24.4 (21.0-32.0) mmol/L BUN 8 (7.0-18.0) mg/dL Creatinine 0.8 (0.8-1.3) mg/dL Est Cr Clr Drug Dosing 133.07 mL/min Estimated GFR (MDRD) > 60.0 ml/min Glucose 112 H (74-106) mg/dL Calcium 8.7 (8.5-10.1) mg/dL [place] Results - Last 24 hrs: Microbiology 02/14/20 17:28 Aerobic Blood Culture - Preliminary Blood - Venous - Lab Draw NO GROWTH AFTER 3 DAYS Anaerobic Blood Culture - Final 02/14/20 17:01 Aerobic Blood Culture - Preliminary Blood - Venous NO GROWTH AFTER 3 DAYS Anaerobic Blood Culture - Preliminary NO GROWTH AFTER 3 DAYS Med Orders - Current: Current Medications Acetaminophen (Tylenol) 650 mg PO Q4H PRN PRN Reason: Pain Last Admin: 02/17/20 22:57 Dose: 650 mg Albuterol/Ipratropium (Combivent Respimat) 0 gm INH Q4H PRN PRN Reason: Dyspnea/wheezing Azithromycin (Zithromax) 500 mg PO Q24H COUNT INCLUDES THE [facility] Last Admin: 02/17/20 22:59 Dose: 500 mg Enoxaparin Sodium (Lovenox) 40 mg SUBCUT Q24H RUI Last Admin: 02/17/20 17:06 Dose: 40 mg Fluticasone Propionate (Flonase) 0 gm NASBOTH Q8H RUI Last Admin: 02/18/20 06:50 Dose: 1 spray Guaifenesin/Dextromethorphan (Robitussin Dm) 5 ml PO Q4H PRN PRN Reason: mucous Last Admin: 02/15/20 21:55 Dose: 5 ml Ceftriaxone Sodium/Dextrose 1 (gm/ Premix) 50 mls @ 100 mls/hr IV Q24H COUNT INCLUDES THE [facility] Last Admin: 02/17/20 22:59 Dose: 100 mls/hr Ibuprofen (Motrin) 400 mg PO Q6H PRN PRN Reason: Pain Last Admin: 02/17/20 03:43 Dose: 400 mg Oxycodone HCl (Oxycodone) 5 mg PO Q6H PRN PRN Reason: Pain Sodium Chloride (Saline Flush) 10 ml FLUSH ASDIRECTED PRN PRN Reason: Keep Vein Open Sodium Chloride (Saline Flush) 2.5 ml FLUSH ASDIRECTED PRN PRN Reason: Keep Vein Open Sodium Chloride (Normal Saline) 10 ml IV ASDIRECTED PRN PRN Reason: IV Use Discontinued Medications Albuterol/Ipratropium (Duoneb 3.0-0.5 Mg/3 Ml) 3 ml NEB Q4HRRT PRN PRN Reason: Shortness Of Breath/wheezing Last Admin: 02/15/20 07:40 Dose: 3 ml Furosemide (Lasix) 20 mg IVPUSH NOW ONE Stop: 02/14/20 23:43 Last Admin: 02/14/20 23:55 Dose: 20 mg Heparin Sodium (Porcine) (Heparin Sodium) 5,000 units SUBCUT Q8H COUNT INCLUDES THE [facility] Last Admin: 02/14/20 22:21 Dose: Not Given Heparin Sodium (Porcine) (Heparin Sodium) 5,000 units SUBCUT Q8H COUNT INCLUDES THE [facility] Last Admin: 02/15/20 05:13 Dose: 5,000 units Lactated Ringer's (Ringers, Lactated) 1,000 mls @ 100 mls/hr IV ASDIRECTED COUNT INCLUDES THE [facility] Last Admin: 02/15/20 10:56 Dose: 100 mls/hr Azithromycin 500 mg/ Sodium (Chloride) 250 mls @ 250 mls/hr IV Q24H RUI Ceftriaxone Sodium 1 gm/ (Sodium Chloride) 50 mls @ 100 mls/hr IV Q24H COUNT INCLUDES THE [facility] Last Admin: 02/15/20 00:14 Dose: 100 mls/hr Azithromycin 500 mg/ Sodium (Chloride) 250 mls @ 250 mls/hr IV Q24H COUNT INCLUDES THE [facility] Last Admin: 02/15/20 23:51 Dose: 250 mls/hr Morphine Sulfate (Morphine) 2 mg IVPUSH Q4H PRN PRN Reason: Pain Last Admin: 02/16/20 04:54 Dose: 2 mg
== END 2020-02-18 12:30 | disposition home or self-care (01) | DRG 195 ==
LOC: MW.ED 16:13 → MW.MS 18:02 → OBSVTOIN 02-15 10:01
PROVIDERS: ADMIT Student in an Organized Health Care Education/Training Program; ATTEND Student in an Organized Health Care Education/Training Program
DX: J12.9 Viral pneumonia, unspecified (principal); Z20.828 Contact with and (suspected) exposure to other viral communicable diseases; R31.9 Hematuria, unspecified; Z87.891 Personal history of nicotine dependence
CPT/HCPCS: 36415; 71045; 71045-26; 71275; 71275-26; 74176; 74176-26; 80048; 80053; 81001; 82803; 83605; 83880; 84484; 85025; 85610; 87040; 87486; 87581; 87632; 87798; 87804; 93005; 94660; 96361; 96365; 96372; 96375; 96376; 99284; 99285-25; A9270-GY; G0378; J0456; J0696; J1644; J1650; J2270; J7050; J7120; J7620-GY; U0002